=== PATIENT | male | born 1995 | race Caucasian/White ===

== ENCOUNTER 2018-06-15 08:53 | Emergency (ER) | payer OTHER ==
[~2018-06-15] VITALS: Ht 175.3 cm; Wt 77.0 kg
[~2018-06-15 08:53] MED LIST: IBUP-1544 PO; QUET50TA PO
[2018-06-15 08:56] VITALS: Ht 175.3 cm; Wt 77.0 kg
[2018-06-15] MEDS ORDERED: LORAZEPAM 1 MG TAB PO ONE ×2 (09:30)
--- NOTE | 2018-06-15 10:29 | ERD ---
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 He said he woke up this morning and felt anxious still so he is here for that reason. He did not take his Seroquel 50 mg last night like he usually does. He says he is not suicidal or homicidal. He says he just feels anxious. ROS All systems reviewed and are negative except as per history of present illness. Medications Home Meds Reported Medications Ibuprofen* (Ibuprofen*) 800 Mg Tablet, 800 MG PO DAILY 03/17/13 Quetiapine Fumarate* (Seroquel*) 50 Mg Tablet, 400 MG PO BID 03/17/13 Allergies Allergies: Coded Allergies: Amoxicillin (Verified Allergy, 07/28/11) PMhx/Soc History of Surgery: No (TONSILLECTOMY) Anesthesia Reaction: No Hx Neurological Disorder: No Hx Respiratory Disorders: No (ASTHMA A CHILD) Hx Cardiac Disorders: Yes Hx Psychiatric Problems: Yes (PSYCHOTIC DISORDER) Hx Miscellaneous Medical Probl: No Hx Alcohol Use: Yes (OCCASIONALLY) Hx Substance Use: Yes Hx Tobacco Use: Yes Smoking Status: Never smoker FmHx Family History: No coronary disease Physical Exam Vitals Vital Signs Date Temp Pulse Resp B/P (MAP) Pulse Ox O2 O2 Flow FiO2 Time Delivery Rate 06/15/18 99.2 101 24 194/89 99 08:56 (124) Physical Exam Const: No acute distress Head: Atraumatic Eyes: Normal Conjunctiva ENT: Normal External Ears, Nose and Mouth. Neck: Full range of motion. No meningismus. Resp: Clear to auscultation bilaterally Cardio: Regular rate and rhythm, no murmurs Abd: Soft, non tender, non distended. Normal bowel sounds Skin: No petechiae or rashes Back: No midline or flank tenderness Ext: No cyanosis, or edema Neur: Awake and alert Psych: Normal Mood and Affect, denies SI Results 24 hrs Current Medications Medications Dose Sig/Nory Start Time Status Last (Trade) Ordered Route PRN Stop Time Admin Dose Reason Admin Lorazepam 1 mg ONCE ONCE 06/15/18 DC 06/15/18 (Ativan) PO 09:30 09:16 06/15/18 09:31 Lorazepam 1 mg ONCE ONCE 06/15/18 DC 06/15/18 (Ativan) PO 09:30 09:39 06/15/18 09:31 Procedures/MDM He was given 2 mg of Ativan p.o. for his anxiety DISCUSSED with him and his mother need to follow-up with the primary care physician Departure Diagnosis: Primary Impression: Anxiety Additional Impression: Substance abuse Condition: Stable ARNOLDO NORMAN DO Jun 15, 2018 10:29
[2018-06-15] MEDS ORDERED: LORA1TAB PO (10:30)
[2018-06-15 10:50] VITALS: BP 161/71; PULSE 101; RESP 18
== END 2018-06-15 10:58 | disposition home or self-care (01) ==
LOC: E/R 08:53
DX: F41.9 Anxiety disorder, unspecified (principal); F15.10 Other stimulant abuse, uncomplicated
CPT/HCPCS: Z7502; Z7610; 99283